=== PATIENT | male | born 1995 | race Caucasian/White ===

== ENCOUNTER 2016-05-16 21:09 | Emergency (ER) | payer OTHER ==
[2016-05-16] MEDS ORDERED: AMPICILLIN/SULBACTAM 3 GM in NS 100 ML IV ONE (21:53)
--- NOTE | 2016-05-16 22:31 | EDPHY ---
H & P Time Seen by Provider: 05/16/16 21:24 HPI/ROS: Chief complaint. Hand swelling HPI. 20-year-old male presents emergency department with swelling to the left hand. He was breaking up a dog fight at [employer] yesterday. He thinks possibly he hit his hand on something as well. He had everything happened so quickly he was not quite sure whether he was bitten but he did sustain a scratch at the base of the left 2nd finger. He is right handed. No fever. Some pain to palpation on the top of his hand at the base of the 2nd finger. Patient is able to flex without difficulty.. Patient was treated for cellulitis of the hand after a dog bite 2 weeks ago successfully with Augmentin ROS Constitutional. no fever/chills, no weakness Eyes. no problems with vision ENT. no sore throat, no nasal drainage Cardiovascular. no chest pain Respiratory. no shortness of breath, no cough Abdominal. no abdominal pain, no nausea/vomiting, no diarrhea . no problems urinating MS. Left hand swelling and redness Skin. no rash Lymph. no swollen glands Neuro. no headache, no dizziness, no difficulty walking or with speech Past Medical/Surgical History: Healthy Social History: Single, daily smoker, no alcohol Smoking Status: Current some day smoker Physical Exam: General Appearance: Alert well-developed male mild distress vital signs stable. He is afebrile Eyes: Pupils equal and round no pallor or injection. ENT, Mouth: Mucous membranes are moist. Respiratory: There are no retractions, lungs are clear to auscultation. Cardiovascular: Regular rate and rhythm. Gastrointestinal: Abdomen is soft and nontender, no masses, bowel sounds normal. Neurological: Awake and alert, sensory and motor exams grossly normal. Skin: Warm and dry, no rashes. Musculoskeletal: Neck is supple nontender. Extremities left hand swelling and redness on the dorsum. He has no pain to extension of the flexor side. He has slight pain to palpation on the dorsum at the base of the 2nd MCP joint. There is a superficial abrasion in this area. There is no lymphangitis Psychiatric: Patient is oriented X 3, there is no agitation. Constitutional: Initial Vital Signs Temperature (C) 36.9 C 05/16/16 21:15 Heart Rate 87 05/16/16 21:15 Respiratory Rate 14 05/16/16 21:15 Blood Pressure 135/91 H 02/24/17 21:15 O2 Sat (%) 94 05/16/16 21:15 O2 Delivery Mode Room Air Allergies/Adverse Reactions: No Known Allergies Allergy (Unverified 05/16/16 21:14) Home Medications: Medication Instructions Recorded Amoxicillin/Clavulanate Pot 875 mg PO BID #14 tab 05/16/16 [Augmentin 875 MG TAB (*)] Hydrocodone/APAP 5/325 [[place] 1 each PO Q4-6PRN PRN #10 tab 05/16/16 5/325 (*)] Medical Decision Making - Diagnostics Imaging: X-ray left hand interpreted by me is negative for fracture. No evidence of gas or foreign body in the soft tissues Procedures: IV normal saline. Patient is given Unasyn intravenously ED Course/Re-evaluation: Re-evaluation the patient is stable. The patient, his mom, and I discussed treatment plan including criteria for return including increased pain swelling and painful movement of fingers. He will be sent home with take-home Augmentin tonight as well as hydrocodone. He is encouraged to return over the weekend for worsening symptoms. He will be given Infectious Disease follow-up. Differential Diagnosis: I considered cellulitis, fracture, lymphangitis, retained foreign body, tenosynovitis - Data Points Medications Given: Discontinued Medications Ampicillin Sodium/Sulbactam (Sodium 3 gm/ Sodium Chloride) 100 mls @ 200 mls/ hr IV EDNOW ONE PRN Reason: Protocol Stop: 05/16/16 22:22 Last Admin: 05/16/16 22:35 Dose: 100 mls Departure - Departure Disposition: Home, Routine, Self-Care Clinical Impression: Cellulitis Qualifiers: Site of cellulitis: extremity Site of cellulitis of extremity: upper extremity Laterality: left Qualified Code(s): L03.114 - Cellulitis of left upper limb Condition: Good Instructions: Cellulitis (ED) Additional Instructions: Begin Augmentin tomorrow morning and using 1 pill twice daily. Ibuprofen 600 mg every 6 hours. Hydrocodone in addition for pain. Return for increased pain increased swelling, increased pain on movement of fingers. Recheck on Thursday. I will give you the name of Infectious Disease physician for follow-up Referrals: NONE *PRIMARY CARE P,. [Primary Care Provider] - As per Instructions Elizabeth Tian MD [Medical Doctor] - 2-3 days, if not improved Prescriptions: Amoxicillin/Clavulanate Pot [Augmentin 875 MG TAB (*)] 875 mg PO BID #14 tab Hydrocodone/APAP 5/325 [[place] 5/325 (*)] 1 each PO Q4-6PRN PRN #10 tab PRN Reason: Pain, Moderate
[2016-05-16] MEDS ORDERED: HYDROCOD/APAP 5/325 PREPACK#6 BTL TAKEHOME ONE (22:48)
[2016-05-16] MEDS ORDERED: AMOXICILLIN/CLAVULANATE POT 875/125 MG TAB PO ONE (22:49)
[2016-05-16 23:17] VITALS: BP 122/74; PULSE 63; RESP 20; TEMP 97.7; O2SAT 97
== END 2016-05-16 23:17 | disposition home or self-care (01) ==
DX: L03.114 Cellulitis of left upper limb (principal); F17.200 Nicotine dependence, unspecified, uncomplicated
CPT/HCPCS: 96374; J0295

== ENCOUNTER 2016-05-18 08:35 | Emergency (ER) | payer OTHER ==
[2016-05-18 08:40] VITALS: BP 132/70; PULSE 88; RESP 14; TEMP 97.9; O2SAT 98
--- NOTE | 2016-05-18 08:57 | EDPHY ---
H & P Stated Complaint: here 2 days ago and dx with cellulitis- pt states not better or worse Time Seen by Provider: 05/18/16 08:40 HPI/ROS: Chief complaint: Left hand cellulitis recheck History of present illness: This is a 20-year-old male who presents to the emergency department for recheck of a left hand cellulitis. 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 Approximately 4 days ago he attempted to break up a fight between dogs and sustained a bite to his left hand with primary wound over the left second MCP joint. He subsequently developed pain, redness and swelling to the hand. He was seen in this emergency department 2 days ago and diagnosed with a left hand cellulitis. He was given a dose of IV Zosyn and discharged home on Augmentin. Patient states he has been doing well. He does report improvement in the pain, redness and swelling, specifically this is resolving. However, he is concerned as it has not completely resolved. He denies any new signs or symptoms including no new pain, no new redness, no swelling, no red streaking up the hand. He can move the digits of the hand without difficulty. No fevers. - Personal History Current Tetanus/Diphtheria Vaccine: Yes Current Tetanus Diphtheria and Acellular Pertussis (TDAP): Yes - Medical/Surgical History Hx Asthma: Yes Hx Chronic Respiratory Disease: No Hx Diabetes: No Hx Cardiac Disease: No Hx Renal Disease: No Hx Cirrhosis: No Hx Alcoholism: No Hx HIV/AIDS: No Hx Splenectomy or Spleen Trauma: No Other PMH: pmh- cellulitis, asthma - Social History Smoking Status: Current every day smoker - Physical Exam Exam: In general: Alert, nontoxic Skin: There is trace erythema and edema to the dorsum of the left hand. I do not appreciate significant warmth to the area as compared to the right hand. There is no tenderness. No induration or fluctuance appreciated to suggest abscess. No red streaking up the arm. Musculoskeletal: No tenderness to palpation of the hand. Patient has good movement in all jean of the left 2nd MCP joint without discomfort. I can passively range it without discomfort. He is moving all other joints in all other digits well without difficulty. Vascular: Capillary refill is brisk in all digits to the left hand. Radial pulse 2 +. Neurologic: Sensation is intact in all digits of the left hand. Constitutional: Initial Vital Signs Temperature (C) 36.6 C 05/18/16 08:36 Heart Rate 88 05/18/16 08:36 Respiratory Rate 14 05/18/16 08:36 Blood Pressure 132/70 H 05/18/16 08:36 O2 Sat (%) 98 05/18/16 08:36 O2 Delivery Mode Room Air Allergies/Adverse Reactions: No Known Allergies Allergy (Unverified 05/16/16 21:14) Home Medications: Medication Instructions Recorded Amoxicillin/Clavulanate Pot 875 mg PO BID #14 tab 05/16/16 [Augmentin 875 MG TAB (*)] Hydrocodone/APAP 5/325 [[place] 1 each PO Q4-6PRN PRN #10 tab 05/16/16 5/325 (*)] Medical Decision Making ED Course/Re-evaluation: Patient discussed with my secondary supervising physician Dr. Sher Hammond. Patient presents to the emergency department for recheck of a left hand cellulitis. He does report it is improving. He is concerned however that it has not fully resolved. On physical exam there is only minimal findings. I do not appreciate evidence of complications such as septic joint or infectious tenosynovitis. I discussed with him he needs to continue the antibiotics to allow the infection to fully resolved. Home care is discussed. He is asked to follow up with a hand surgeon tomorrow for recheck and referral information is provided. Strict return precautions were given. Patient voiced understanding and agreement with plan. Differential Diagnosis: Included but not limited to traumatic injury such as contusion, cellulitis, unlikely abscess formation, septic joint or infectious tenosynovitis Departure - Departure Disposition: Home, Routine, Self-Care Clinical Impression: Cellulitis of left hand Condition: Good Instructions: Cellulitis (ED) Additional Instructions: Please call and arrange a follow-up appoint with hand surgery for recheck tomorrow Continue to take antibiotics as prescribed until finished even feeling better If symptoms worsen or new symptoms develop return to the emergency department for recheck Referrals: NONE *PRIMARY CARE P,. [Primary Care Provider] - As per Instructions Belle Reyes MD [Medical Doctor] - As per Instructions
== END 2016-05-18 09:06 | disposition home or self-care (01) ==
DX: L03.114 Cellulitis of left upper limb (principal); J45.909 Unspecified asthma, uncomplicated; F17.200 Nicotine dependence, unspecified, uncomplicated

== ENCOUNTER 2018-04-04 08:25 | Emergency (ER) | payer OTHER ==
[2018-04-04 08:33] VITALS: BP 108/85
[2018-04-04] MEDS ORDERED: AMOXICILLIN/CLAVULANATE POT 875/125 MG TAB PO ONE (08:57)
--- NOTE | 2018-04-04 09:04 | EDPHY ---
H & P Stated Complaint: dog bite to bilat arms (dog utd vac) at wk this am Time Seen by Provider: 04/04/18 08:54 - Personal History Current Tetanus/Diphtheria Vaccine: Yes Current Tetanus Diphtheria and Acellular Pertussis (TDAP): Yes - Medical/Surgical History Hx Asthma: Yes Hx Chronic Respiratory Disease: No Hx Diabetes: No Hx Cardiac Disease: No Hx Renal Disease: No Hx Cirrhosis: No Hx Alcoholism: No Hx HIV/AIDS: No Hx Splenectomy or Spleen Trauma: No Other PMH: pmh- cellulitis, asthma - Social History Smoking Status: Current some day smoker Constitutional: Initial Vital Signs Temperature (C) 36.9 C 04/04/18 08:31 Heart Rate 95 04/04/18 08:31 Respiratory Rate 16 04/04/18 08:31 Blood Pressure 108/85 H 04/04/18 08:31 O2 Sat (%) 100 04/04/18 08:31 O2 Delivery Mode Room Air Allergies/Adverse Reactions: No Known Allergies Allergy (Verified 04/04/18 08:30) Home Medications: Medication Instructions Recorded Amoxicillin/Clavulanate Pot 875 mg PO BID #14 tab 04/04/18 [Augmentin 875 MG TAB (RX)] Medical Decision Making ED Course/Re-evaluation: CHIEF COMPLAINT: Dog bites HISTORY OF PRESENT ILLNESS: 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 2 dogs were fighting. He broke up the fight. He has 2 superficial injuries to his right thenar eminence and left index finger. They are not significant punctures. Patient states he has normal function. Tetanus is up-to-date. REVIEW OF SYSTEMS: A comprehensive 10 system review of systems is otherwise negative aside from elements mentioned in the history of present illness and medical decision making. PHYSICAL EXAM: HR, BP, O2 Sat, RR. Temp noted General Appearance: Alert, well hydrated, appropriate, and non-toxic appearing. Head: Atraumatic without scalp tenderness or obvious injury Eyes: Pupils equal, round, reactive to light and accommodation, EOMI, no trauma , no injection. Ears: Clear bilaterally, no perforation, normal landmarks Nose: Atraumatic, no rhinorrhea, clear. Throat: There is no erythema or exudates, no lesions, normal tonsils, mucus membranes moist. Neck: Supple, 2+ carotid upstroke, nontender, no lymphadenopathy. Respiratory: No retractions, no distress, no wheezes, and no accessory muscle use. Lungs are clear to auscultation bilaterally. Cardiovascular: Regular rate and rhythm, no murmurs, rubs, or gallops. Bilateral carotid, radial, dorsalis pedis, and posterior tibial pulses intact. Good capillary refill all extremities. Gastrointestinal: Abdomen is soft, nontender, non-distended, no masses, no rebound, no guarding, no peritoneal signs. Musculoskeletal: Normal active ROM of all extremities, atraumatic. Neurological: Alert, appropriate, and interactive. The patient has normal DTRs and non-focal cranial nerves, motor, sensory, and cerebellar exam. Skin: Superficial dog bites to the extremities mentioned above. Normal function. No rashes, good turgor, no nodules on palpation. Past medical history: None Past surgical history: None Family history: Noncontributory Social history: Single, employed, does not abuse tobacco drugs or alcohol DIFFERENTIAL DIAGNOSIS: Includes but is not limited to: Puncture, laceration , infected dog bite, tendon injury, nail bed injury MEDICAL DECISION MAKING: This patient has no significant injuries. He does not require any repair of the skin. We have cleaned the injuries of applied bacitracin and will start him on Augmentin. He will follow up only if needed he knows to keep the wounds clean. Departure - Departure Disposition: Home, Routine, Self-Care Clinical Impression: Dog bite of arm Qualifiers: Encounter type: initial encounter Laterality: right Qualified Code(s): S41.151A - Open bite of right upper arm, initial encounter; W54.0XXA - Bitten by dog, initial encounter; W54.0XXA - Bitten by dog, initial encounter Condition: Good Instructions: Animal Bite (ED) Additional Instructions: Wash areas 3 times daily with soap and water and apply an antibiotic ointment. Return if areas get worsened redness or any red streaks up her arms or any difficulty with function of your hands or arms Referrals: NONE *PRIMARY CARE P,. [Primary Care Provider] - As per Instructions Prescriptions: Amoxicillin/Clavulanate Pot [Augmentin 875 MG TAB (RX)] 875 mg PO BID #14 tab
== END 2018-04-04 09:10 | disposition home or self-care (01) ==
DX: S61.251A Open bite of left index finger without damage to nail, initial encounter (principal); W54.0XXA Bitten by dog, initial encounter; Y99.0 Civilian activity done for income or pay; Y92.89 Other specified places as the place of occurrence of the external cause; Y93.89 Activity, other specified